=== PATIENT | male | born 1950 | race Caucasian/White ===

== ENCOUNTER → 2016-12-25 | Outpatient (CLI) | payer OTHER ==
[~2016-12-25] MED LIST: ALLOPURINOL 10100 M1 PO; AMBIEN 10 MG TA10 MG PO; ASPIRIN325 PO; BACTRIM DS TAB1 EACH PO; CRESTOR20 MG PO; FOLIC ACID 1 MG1 MG PO; HIBICLENS120 ML TP; HYDROCODON-ACE1 EAC7 PO; LORATIDINE 10 M10 M1 PO; MEDROLDOSEPACK PO; MULTIVITAMINS1 EAC7 PO; NEURONTIN 300300 M1 PO; NEXIUM40 MG PO; OMEGA-3 + VITA1 EAC1 PO; PROTONIX40 M2 PO; SLO-NIACIN500 MG PO; TESSALON PERLE100 MG PO; TRIBENZOR 40-11 EACH; VITAMIN B-12500 MCG PO; VITAMIN D1000 UNI1 PO; ZOLOFT25 MG PO
== END | disposition home or self-care (01) ==
LOC: RAD 07:53
DX: M54.16 Radiculopathy, lumbar region (principal); M47.816 Spondylosis without myelopathy or radiculopathy, lumbar region

== ENCOUNTER 2017-06-25 05:20 | Day surgery (SDC) | payer OTHER ==
[~2017-06-25] VITALS: Ht 167.6 cm; Wt 83.9 kg
--- NOTE | ~2017-06-25 | D ---
[facility] [place] [address] DISCHARGE SUMMARY Name: STEPH SANTILLAN Room #: 402-P REG [facility].#: [id number] Admission: 06/25/17 Attend Phys: Arnoldo Bar MD Discharge: Date of : 48 Report #: [id number] THIS REPORT FOR: //name// CC: Arnoldo Gill DATE OF SERVICE: 06/26/2017 FINAL DIAGNOSES: Severe degenerative lumbar spondylosis and spinal stenosis with radiculopathy. OPERATIONS AND PROCEDURES: Decompressive lumbar laminectomy for spinal stenosis, L3-L4 levels. HISTORY OF PRESENT ILLNESS: This slender, fit, active 67-year-old gentleman has problems with severe progressive degenerative lumbar spondylosis. He underwent previous laminectomy and diskectomy in the low lumbar region in the distant past. He now has progressive bilateral leg pain, numbness or weakness with symptoms consistent with radiculopathy. Recent myelogram CT scan confirms a rather severe spinal stenosis measuring about 7 mm in diameter at the L3-L4 level. Given this, we have elected to go ahead with surgical decompression. HOSPITAL COURSE: The patient was admitted and taken to the operating room on June 25. He underwent decompression bilaterally at L3 and L4 extending appropriately above and below the area of marked stenosis. He does have other areas of degenerative change, but no marked canal compromise. He tolerated the procedure well. Postoperatively, his pain was controlled initially on IV analgesics and then he was slowly advanced to oral analgesics. He was allowed to begin gentle activity and ambulation, which he managed nicely. He was able to resume a regular diet. He is today ambulating independently in the hallway. He is managing with oral pain medications. He states his leg pain, numbness and weakness is almost completely resolved with only minor residual tingling in both feet. He is having rather significant back pain at the surgical site, but feels this is manageable with oral analgesics. He is anxious for hospital discharge home today. DISCHARGE MEDICATIONS: Include allopurinol 200 mg daily, Crestor 20 mg daily, folic acid 1 mg daily, Ambien 10 mg at bedtime p.r.n., gabapentin 300 mg b.i.d., Nexium 40 mg daily, Zoloft 25 mg daily, metformin 500 mg daily, Xarelto 20 mg daily, hydrocodone 10/325 one q.4 hours p.r.n. pain. I have advised him to continue gentle independent exercise program at home, which he feels he can manage. He will continue his routine medications. I have asked him to call me [address] [address] DISCHARGE SUMMARY Name: STEPH SANTILLAN Room #: 402-P [facility] [place]#: [id number] Admission: 06/25/17 Attend Phys: Arnoldo Bar MD Discharge: Date of : 48 Report #: [id number] if any problems with his back wound or any other neurologic symptoms. I will plan to see him back in my office in 2 weeks for followup and suture removal. <ELECTRONICALLY SIGNED> By: Arnoldo Bar MD 06/26/17 1309 1232 1254 Arnoldo Bar MD /nt
--- NOTE | ~2017-06-25 | O ---
[facility] [place] [place] [address] OPERATIVE REPORT Name: STEPH SANTILLAN Room #: 402-P REG [facility].#: [id number] Admission: 06/25/17 Attend Phys: Arnoldo Bar MD Discharge: Date of : 48 Report #: [id number] THIS REPORT FOR: //name// CC: Arnoldo Gill DATE OF SERVICE: 06/25/2017 PREOPERATIVE DIAGNOSIS: Lumbar spinal stenosis L3-L4 with radiculopathy. POSTOPERATIVE DIAGNOSIS: Lumbar spinal stenosis L3-L4 with radiculopathy. PROCEDURE: Decompressive laminectomy, bilateral L3 and L4 for correction of spinal stenosis. SURGEON: Arnoldo Bar MD. INDICATIONS: This 67-year-old gentleman has had some chronic intermittent back problems for some time. He had a previous lower lumbar diskectomy in the distant past. Recently, he is having only moderate back pain, but progressive bilateral leg pain, numbness, and weakness. A recent CT myelogram study shows a rather severe central canal stenosis at L3-L4 with narrowing down to about 7 mm. He has less severe degenerative change and canal narrowing above and below that without marked neurologic impingement. We discussed treatment options and elected to go ahead with surgical decompression of the area of rather marked spinal stenosis. DESCRIPTION OF PROCEDURE: The patient was taken to the operating room where he was placed under general anesthesia. Prophylactic intravenous antibiotics were administered. He was turned to the prone position. The low back was meticulously prepped and draped. C-arm was used to localize the appropriate level. A skin incision was made extending just above the L3 spinous process to a point just below the L4 spinous process. The dissection was extended through fascia and the paraspinal muscles were retracted laterally to expose the lamina. The canal was entered at the L3-L4 space and ligamentum was excised. There was rather marked stenosis at this level making dissection difficult. The dissection was extended proximally and distally, removing the entire lamina of L3 and the entire lamina of L4. The dissection was extended out laterally undercutting the facet joints to improve the foraminal stenosis as well. Once the decompression had been completed, there appeared to be marked improvement in the canal stenosis and the canal seemed to be much better and more opened both proximally and distally. I did not feel further dissection was necessary. C-arm views were obtained periodically through the dissection and the final views demonstrated that I had been above the L3 level and below the L4 level, encompassing the area of significant stenosis. At this point, the wound was copiously irrigated. Good hemostasis was established. A small sheet of [place] [address] [address] OPERATIVE REPORT Name: TYRELLSTEPH Montes Room #: 402-P REG [facility]..#: [id number] Admission: 06/25/17 Attend Phys: Arnoldo Bar MD Discharge: Date of : 48 Report #: [id number] was placed over the laminotomy defect. The paraspinal muscles were then brought back to the midline and repaired using multiple #1 Vicryl sutures. The fascia was closed with #1 Vicryl. The subcutaneous tissues were closed with 0 Monocryl. The skin was closed with skin bibi. A sterile dressing was applied. The patient was awakened and returned to recovery room in good condition. I would anticipate we will keep him overnight, but allow gradually advancing activity as comfort and strength will allow. <ELECTRONICALLY SIGNED> By: Arnoldo Bar MD 06/26/17 1309 1214 1222 Arnoldo Bar MD /nt
[~2017-06-25 05:20] MED LIST changes: +FLAX SEED OIL1000 MG PO; +GLUCOPHAGE XR500 MG PO; +OMEGA-31000 M1 PO; -TRIBENZOR 40-11 EACH; +TRIBENZOR 40-11 EACH PO; +XARELTO20 MG PO
[2017-06-25 09:30] VITALS: BP 143/83
[2017-06-25 10:12] LABS: HEMATOCRIT 39.7 % (42.0-52.0); HEMOGLOBIN 13.6 gm/dL (14.0-18.0); MCH 30.4 pg (26.0-34.0); MCHC 34.3 g/dL (28.0-37.0); MCV 88.6 fL (80.0-100.0); RBC 4.47 mil/uL (4.50-6.00); RDW 13.1 % (10.5-14.5)
[2017-06-25 14:30] VITALS: BP 137/70
[2017-06-25 19:08] VITALS: BP 137/62
[2017-06-26] VITALS: BP 152/77
[2017-06-26 03:22] VITALS: BP 146/80
[2017-06-26 07:38] VITALS: BP 120/53
[2017-06-26 13:25] VITALS: BP 120/53
== END 2017-06-26 14:05 | disposition home or self-care (01) ==
LOC: 4N 05:20 → OR 05:20 → TBA 05:20 → EDSTATUS 09:30 → OR 09:34 → EDSTATUS 12:24 → PRE 12:25 → 4N 15:25 → OR 15:43 → ENTRNSPT 06-26 13:51 → EDTRNSPTSTS 06-26 13:56 → OR 06-26 14:05
PROVIDERS: Anesthesiology
DX: M48.061 Spinal stenosis, lumbar region without neurogenic claudication (principal); I10 Essential (primary) hypertension; I48.91 Unspecified atrial fibrillation; E11.9 Type 2 diabetes mellitus without complications; E78.5 Hyperlipidemia, unspecified; K21.9 Gastro-esophageal reflux disease without esophagitis; F32.89 Other specified depressive episodes; F41.8 Other specified anxiety disorders; F17.210 Nicotine dependence, cigarettes, uncomplicated; Z95.5 Presence of coronary angioplasty implant and graft; Z90.49 Acquired absence of other specified parts of digestive tract; Z98.890 Other specified postprocedural states; Z79.899 Other long term (current) drug therapy; Z79.891 Long term (current) use of opiate analgesic
CPT/HCPCS: 10790; 50010; 50101; 50402; 50704; 50850; 51412; 56525; 62110; 62900; 70005

== ENCOUNTER 2019-01-05 07:51 | Observation (INO) | payer OTHER ==
[~2019-01-05] VITALS: Ht 165.1 cm; Wt 81.6 kg
[2019-01-05 08:25] VITALS: BP 129/70
[2019-01-05 08:26] LABS: HEMATOCRIT 41.1 % (42.0-52.0); HEMOGLOBIN 14.2 gm/dL (14.0-18.0); MCH 30.5 pg (26.0-34.0); MCHC 34.6 g/dL (28.0-37.0); MCV 88.3 fL (80.0-100.0); PLATELET COUNT 274 thou/uL (150-400); RBC 4.66 mil/uL (4.50-6.00); RDW 13.6 % (10.5-14.5); WBC 5.3 thou/uL (4.0-11.0)
[2019-01-05 08:33] LABS: CREATININE 0.8 mg/dL (0.7-1.3); POTASSIUM 3.9 mmol/L (3.5-5.1)
[2019-01-05] MEDS ORDERED: AMOXICILLIN 50500 MG PO (08:37)
[2019-01-05 08:39] LABS: ALBUMIN 3.8 g/dL (3.4-5.0); TOTAL BILIRUBIN 0.3 mg/dL (<0.1-1.0); TOTAL PROTEIN 7.8 g/dL (6.4-8.2)
[2019-01-05 08:41] LABS: APTT 23.9 Seconds (24.5-32.8); PROTIME 9.3 Seconds (9.3-11.4)
[2019-01-05 08:58] LABS: ABSOLUTE NEUTROPHILS 2.6 thou/uL (1.4-8.2); ANISOCYTOSIS SLIGHT
[2019-01-05 13:00] VITALS: BP 126/72
[2019-01-05 16:54] VITALS: BP 116/65
--- NOTE | 2019-01-05 17:54 | NUR ---
ASSUMED CARE @ 1300 01/05/19, PT ASSESSMENTS AND VSS COMPLETE PER CCU PROTOCOL. PT ALERT AND ORIENTED X 4, PT ABLE TO FOLLOW ALL COMMANDS AND ABLE TO ANSWER QUESTIONS APPROPRIATELY. PACEMAKER PLACED TODAY, HR IN THE 60'S, PT AFEBRILE. PT ON RA, SATS IN THE HIGH 90'S, LUNGS SOUND CLEAR AND DIMINISHED IN THE BASES. PT ON A 2GM DIET, ABLE TO TOLERATE WELL. PT ABLE TO WALK TO THE BATHROOM WITHOUT DIFFICULTY, PT EDUCATED ABOUT POST-OP PACEMAKER PLACEMENT, BEDREST OVERNIGHT PER ORDERS. PLAN OF CARE- CONT TO MONITOR.
[2019-01-05 19:55] VITALS: BP 126/74
[2019-01-06 00:38] VITALS: BP 136/83
--- NOTE | 2019-01-06 04:54 | NUR ---
PT POST CARDIAC PACEMAKER PLACEMENT . ALERT AND ORIENTED. DENIES PAIN OTHER THAN SORENESS AT THE INCISION SITE. ICE OFFERED. PT COMPLETED HIS DOSE CEFAZOLIN. HAND IMMOBILIZER TO THE LEFT ARM. VITALS STABLE. NO FEVER. WILL CONTINUE TO FOLLOW PLAN OF CARE AND PC ANTICIPATES TO GET A CONFIRMATORY XRAY ABD DC HOME.
[2019-01-06 06:35] VITALS: BP 124/71
[2019-01-06 08:31] VITALS: BP 133/73
[2019-01-06 11:28] VITALS: BP 133/73
--- NOTE | 2019-01-12 12:10 | P ---
[facility] [place] [address] PROCEDURE REPORT Name: STEPH SANTILLAN Room [facility]: 210-P [facility] [id number] Admission: 01/05/19 ������������������ Attend Phys: Chico Glynn MD Discharge: 01/06/19 ������������������ Date of : 48 Report #: [id number] THIS REPORT FOR: //name// CC: Chico Gill PACEMAKER IMPLANTATION HISTORY: The patient is a 69-year-old male with history of recurrent syncope who has a Medtronic implantable loop recorder. He recently had a syncopal episode while on an airplane, which demonstrated that he had an episode of sinus arrest. He is here for pacemaker implantation and loop recorder removal. ANESTHESIA: The patient underwent MAC anesthesia with no anesthesia related complications. DESCRIPTION OF PROCEDURE: The patient underwent informed consent. We discussed the details of the procedure including the risks, which include, but not limited to, bleeding, infection, vascular damage, cardiac perforation and pneumothorax. He understood these risks and is willing to proceed. The patient was brought to the EP laboratory in a fasting and unsedated state, prepped and draped in a sterile fashion. He received IV antibiotics and underwent a venogram showing patency of left axillary vein. Next, lidocaine was injected below the level of clavicle. Incision was made, pocket was created over the prepectoral fascia and access was obtained twice to left axillary vein using the extrathoracic approach. Sheaths were positioned using the modified Seldinger technique. Under fluoroscopy, leads were positioned in the right ventricular apex and right atrial appendage both with adequate pacing and sensing thresholds. The device was connected. The leads were sutured to the prepectoral fascia. Pocket was irrigated with vancomycin. The pocket was closed in 2 layers using 2-0 for the deep layer and 3-0 for the mid layer and surgical glue was placed outer skin layer. The patient awoke neurologically and hemodynamically intact. No complications and no significant bleeding. The implantable loop recorder was also removed. Lidocaine was injected. Incision was made and the device was removed. A single layer of suture was performed to close this incision. The implanted pacemaker was a Medtronic model number W3DR01, serial number [id number]. The atrial lead was Medtronic model number 5076, serial number [id number]. The RV lead was a Medtronic model number 5076, serial number [id number]. The atrial lead demonstrated a P-wave of 1.75 volts. Pacing impedance was 494 ohms and the pacing threshold was 0.625 volts at 0.4 milliseconds. The RV lead demonstrated R-wave of 7 millivolts, pacing impedance of 741 ohms and the pacing threshold of 0.75 volts at 0.4 milliseconds. The device was programmed to the DDDR 60-130 mode[address] [address] PROCEDURE REPORT Name: STEPH SANTILLAN Room #: 210-P [facility] M.R.#: [id number] Admission: 01/05/19 ������������������ Attend Phys: Chico Glynn MD Discharge: 01/06/19 ������������������ Date of : 48 Report #: [id number] CONCLUSIONS: 1. Successful dual-chamber pacemaker implantation. 2. Satisfactory atrial and ventricular pacing and sensing thresholds. 3. Successful implantable loop recorder removal. ��������������������������������������������� <ELECTRONICALLY SIGNED> ���������������������������������������� By: Chico Glynn MD ��������������������������������������������� 01/12/19 1210 1503 0628 Chico Glynn MD /nt
== END 2019-01-06 12:14 | disposition home or self-care (01) ==
LOC: CATH 07:51 → 2N 12:44 → CATH 15:08 → ENTRNSPT 01-06 11:34 → EDTRNSPTSTS 01-06 11:38 → 2N 01-06 12:14
PROVIDERS: ADMIT Internal Medicine Cardiovascular Disease
DX: I49.5 Sick sinus syndrome (principal); R55 Syncope and collapse; I25.10 Atherosclerotic heart disease of native coronary artery without angina pectoris; I10 Essential (primary) hypertension; I48.0 Paroxysmal atrial fibrillation; E11.9 Type 2 diabetes mellitus without complications; E78.00 Pure hypercholesterolemia, unspecified; F17.210 Nicotine dependence, cigarettes, uncomplicated; Z79.84 Long term (current) use of oral hypoglycemic drugs; Z79.899 Other long term (current) drug therapy
CPT/HCPCS: 62110; 62900; 70005

== ENCOUNTER → 2019-12-22 | Outpatient (CLI) | payer OTHER ==
[~2019-12-22] MED LIST changes: +AMOXICILLIN 50500 MG PO
== END ==
LOC: MRI 13:30
PROVIDERS: ATTEND Orthopaedic Surgery
DX: S83.242A Other tear of medial meniscus, current injury, left knee, initial encounter (principal); S83.282A Other tear of lateral meniscus, current injury, left knee, initial encounter; Z95.0 Presence of cardiac pacemaker; X58.XXXA Exposure to other specified factors, initial encounter; Y93.89 Activity, other specified; Y92.89 Other specified places as the place of occurrence of the external cause; Y99.8 Other external cause status

== ENCOUNTER → 2021-02-22 | Outpatient (CLI) | payer BC, OTHER | LOC: ULTRA 10:10 | PROVIDERS: ATTEND Internal Medicine | DX: M79.89 Other specified soft tissue disorders (principal) ==

== ENCOUNTER → 2021-03-29 | Outpatient (CLI) | payer BC, OTHER | LOC: SJCVCIMAG 11:16 | PROVIDERS: ATTEND Internal Medicine | DX: M79.604 Pain in right leg (principal); M79.605 Pain in left leg ==